=== PATIENT | male | born 1940 | race Asian ===

== ENCOUNTER 2019-02-21 19:10 | Emergency (ER) | payer OTHER ==
[~2019-02-21] VITALS: Ht 170.2 cm; Wt 70.5 kg
[~2019-02-21 19:10] MED LIST: ALLO300 PO; AMLO-97 PO; ASPI81 PO; ATEN25TA PO; COLC0.6T67 PO; METF500T7 PO; SIMV-261 PO
[2019-02-21 19:14] VITALS: BP 160/80
[2019-02-21 19:24] LABS: GLUCOSE,POINT OF CARE 117 MG/DL (70-110)
[2019-02-21] MEDS ORDERED: ATOR40TA28 PO (19:26)
[2019-02-21] MEDS ORDERED: CARV6 PO (19:26)
[2019-02-21] MEDS ORDERED: KETOROLAC TROMETHAMINE 10 MG TABLET PO ONE (20:00)
== END 2019-02-21 21:43 | disposition home or self-care (01) ==
LOC: EMS 19:10
DX: M13.812 Other specified arthritis, left shoulder (principal); I10 Essential (primary) hypertension; E11.9 Type 2 diabetes mellitus without complications; E78.00 Pure hypercholesterolemia, unspecified; Z79.82 Long term (current) use of aspirin; Z79.84 Long term (current) use of oral hypoglycemic drugs